=== PATIENT | male | born 1970 | race Caucasian/White ===

== ENCOUNTER 2018-02-13 09:49 | Inpatient (IN) | payer OTHER ==
--- NOTE | 2018-02-13 10:03 | CPEKG ---
Heart Rate: 115 RR Interval: 522 P-R Interval: 180 QRSD Interval: 90 QT Interval: 316 QTC Interval: 437 P [place]: 19 QRS [place]: 50 T Wave [place]: 7 EKG Severity - OTHERWISE NORMAL ECG - EKG Impression: SINUS TACHYCARDIA Electronically Signed By: Escobar Mcmullen 13-Feb-2018 14:44:19
--- NOTE | 2018-02-13 10:05 | EDPHY ---
H & P Stated Complaint: SOB/CHEST TIGHTNESS WITH EXERTION Time Seen by Provider: 02/13/18 10:05 - Personal History Current Tetanus/Diphtheria Vaccine: Unsure - Medical/Surgical History Hx Asthma: No Hx Chronic Respiratory Disease: No Hx Diabetes: No Hx Cardiac Disease: No Hx Renal Disease: No Hx Cirrhosis: No Hx Alcoholism: No Hx HIV/AIDS: No Hx Splenectomy or Spleen Trauma: No Other PMH: SKULL FX - Social History Smoking Status: Never smoked Constitutional: Initial Vital Signs Temperature (C) 36.9 C 02/13/18 09:55 Heart Rate 131 H 02/13/18 09:55 Respiratory Rate 22 H 02/13/18 09:55 Blood Pressure 107/85 H 02/13/18 09:55 O2 Sat (%) 98 02/13/18 09:55 O2 Delivery Mode Room Air Allergies/Adverse Reactions: No Known Allergies Allergy (Unverified 02/13/18 09:55) Home Medications: Medication Instructions Recorded Ibuprofen [Motrin (*)] 400 mg PO BID PRN 02/13/18 Medical Decision Making - Diagnostics Imaging: I viewed and interpreted images myself ED Course/Re-evaluation: CHIEF COMPLAINT: Rapid heart rate, dyspnea HISTORY OF PRESENT ILLNESS: The patient is a 47 y/o male complaining of rapid heart rate and dyspnea worsening since Wednesday. He's had intermittent similar symptoms for many years and had some limited cardiac evaluation 8-9 years ago in [place] that did not reveal an obvious cause. He had a negative stress test at that time. Since then, he's described himself as exercise-intolerant and this has been a common precipitating cause for his shortness of breath and tachycardia. He's had more frequent episodes of this over the last week and had acute, but short-lived chest pain 5 days ago when walking into work. Over the weekend he's had significantly worsening dyspnea even while lying down or talking while at rest. 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 No recent illness or trauma. He notes his father was recently diagnosed with a thyroid issue. REVIEW OF SYSTEMS: A 10 point review of systems was performed and is negative with the exception of the elements mentioned in the history of present illness. PHYSICAL EXAM: HR 132, BP 90/60, O2 Sat, RR. Temp noted General Appearance: Alert, well hydrated, appropriate, tachypneic, dyspneic, and tachycardic, anxious-appearing. Head: Atraumatic without scalp tenderness or obvious injury Eyes: Pupils equal, round, reactive to light and accommodation, EOMI, no trauma , no injection. Nose: Atraumatic, no rhinorrhea, clear. Throat: Mucus membranes moist. Neck: Supple, nontender, no lymphadenopathy. Respiratory: No retractions, no distress, no wheezes, and no accessory muscle use. Lungs have rales at the bases bilaterally. Few-word dyspnea. Tachypnea. Cardiovascular: Tachycardic regular rate and rhythm, possible diastolic murmur difficult to hear due to rate, no rubs or gallops. Good capillary refill all extremities. Gastrointestinal: Abdomen is soft, nontender, non-distended, no masses, no rebound, no guarding, no peritoneal signs. Musculoskeletal: Normal active ROM of all extremities, atraumatic. Neurological: Alert, appropriate, and interactive. The patient has non-focal cranial nerves, motor, sensory, and cerebellar exam. Skin: No rashes, good turgor, no nodules on palpation. Past medical history: Rapid heart rate/intolerance to exercise of unknown etiology Past surgical history: Denies Family history: Father recently diagnosed with thyroid issue. Social history: Works as software clerk. Recently moved here from [facility]. DIAGNOSTICS/PROCEDURES/CRITICAL CARE TIME: The 12 lead EKG was interpreted by myself. Sinus tachycardia rate 115. See hard copy and/or "tracemaster" electronic copy for interpretation. Chest x-ray: nothing acute Echocardiogram: Mitral valve regurgitation with severe hypokinesis of apex, formal read pending. Critical care time spent by me, Dr. Mcmullen, exclusively with this patient was 45 minutes, exclusive of PA time and exclusive of procedures. The organ system at risk was cardiovascular. Time spent in serial assessments of patient, review of EKGs, labs, and imaging, and consultation with cardiology. DIFFERENTIAL DIAGNOSIS: The differential diagnosis for the patient's shortness of breath and hypoxemia included but was not limited to pneumonia, myocardial infarction, acute mountain sickness, high altitude pulmonary edema, congestive heart failure, and pulmonary embolus. MEDICAL DECISION MAKING: This is a 47 y/o male who presents with several years of "exercise-intolerance" due to tachycardia and dyspnea that worsened acutely on Wednesday, 2 days ago. He now is having dyspnea even at rest and while speaking. He is currently tachycardic around 130, hypotensive around 90 systolic, has few-word dyspnea when speaking, and has rales bilaterally at the bases on auscultation. He has a possible diastolic murmur that is new, but difficult to auscultate due to rapid heart rate. Will need to rule out PE, but presentation seems to more likely point to intrinsic cardiac issue. Plan for IV, labs, EKG, chest CTA, echocardiogram. 1017: Consulted with Dr. Luevano, cardiology. He approves echocardiogram order. Formal echo read pending. There appears to be severe mitral valve regurgitation and possible vegetation. His troponin is elevated at 1.570 and BNP elevated at 6550. This combined with rales, dyspnea, tachycardia seems to indicate CHF related to mitral valve regurgitation. Spoke with hospitalist service. Dr. Roman accepts admission. 1111: Consulted with Dr. Luevano. He will evaluate patient in the ED. CTA chest cancelled. Chest x-ray ordered. 1150: Dr. 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 - Data Points Laboratory Results: Laboratory Results 02/13/18 10:03 02/13/18 10:03 02/13/18 02/13/18 02/13/18 10:03 10:03 10:03 WBC RBC Hgb Hct MCV MCH MCHC RDW Plt Count MPV Neut % (Auto) Lymph % (Auto) [place] % (Auto) Eos % (Auto) Baso % (Auto) Nucleat RBC Rel Count Absolute Neuts (auto) Absolute Lymphs (auto) Absolute Monos (auto) Absolute Eos (auto) Absolute Basos (auto) Absolute Nucleated RBC Immature Gran % Immature Gran # PT 12.9 SEC SEC (12.0-15.0) INR 0.95 (0.83-1.16) APTT 27.5 SEC SEC (23.0-38.0) Sodium 143 mEq/L mEq/L (135-145) Potassium 4.7 mEq/L mEq/L (3.5-5.2) Chloride 101 mEq/L mEq/L (97-110) Carbon Dioxide 25 mEq/l mEq/l (22-31) Anion Gap 17 mEq/L H mEq/L (8-16) BUN 16 mg/dL mg/dL (7-23) Creatinine 1.2 mg/dL mg/dL (0.7-1.3) Estimated GFR > 60 Glucose 141 mg/dL H mg/dL (70-100) Calcium 9.6 mg/dL mg/dL (8.5-10.4) Magnesium 2.1 mg/dL mg/dL (1.6-2.3) Total Bilirubin 2.4 mg/dL H mg/dL (0.1-1.4) Conjugated Bilirubin 0.6 mg/dL H mg/dL (0.0-0.5) Unconjugated Bilirubin 1.8 mg/dL H mg/dL (0.0-1.1) AST 59 IU/L IU/L (17-59) ALT 68 IU/L IU/L (21-72) Alkaline Phosphatase 102 IU/L IU/L (38-126) Troponin I 1.570 ng/mL H ng/mL (0.000-0.034) NT-Pro-B Natriuret Pep 6550 pg/mL H pg/mL (0-125) Total Protein 8.1 g/dL g/dL (6.3-8.2) Albumin 4.6 g/dL g/dL (3.5-5.0) Lipase 91 IU/L IU/L (23-300) TSH 2.110 uIU/mL uIU/mL (0.465-4.680) 02/13/18 10:03 WBC 10.65 10^3/uL H 10^3/uL (3.80-9.50) RBC 5.88 10^6/uL 10^6/uL (4.40-6.38) Hgb 17.9 g/dL H g/dL (13.7-17.5) Hct 49.4 % % (40.0-51.0) MCV 84.0 fL fL (81.5-99.8) MCH 30.4 pg pg (27.9-34.1) MCHC 36.2 g/dL g/dL (32.4-36.7) RDW 12.4 % % (11.5-15.2) Plt Count 176 10^3/uL 10^3/uL (150-400) MPV 9.8 fL fL (8.7-11.7) Neut % (Auto) 70.8 % % (39.3-74.2) Lymph % (Auto) 14.9 % L % (15.0-45.0) [place] % (Auto) 13.4 % H % (4.5-13.0) Eos % (Auto) 0.2 % L % (0.6-7.6) Baso % (Auto) 0.3 % % (0.3-1.7) Nucleat RBC Rel Count 0.0 % % (0.0-0.2) Absolute Neuts (auto) 7.54 10^3/uL H 10^3/uL (1.70-6.50) Absolute Lymphs (auto) 1.59 10^3/uL 10^3/uL (1.00-3.00) Absolute Monos (auto) 1.43 10^3/uL H 10^3/uL (0.30-0.80) Absolute Eos (auto) 0.02 10^3/uL L 10^3/uL (0.03-0.40) Absolute Basos (auto) 0.03 10^3/uL 10^3/uL (0.02-0.10) Absolute Nucleated RBC 0.00 10^3/uL 10^3/uL (0-0.01) Immature Gran % 0.4 % % (0.0-1.1) Immature Gran # 0.04 10^3/uL 10^3/uL (0.00-0.10) PT INR APTT Sodium Potassium Chloride Carbon Dioxide Anion Gap BUN Creatinine Estimated GFR Glucose Calcium Magnesium Total Bilirubin Conjugated Bilirubin Unconjugated Bilirubin AST ALT Alkaline Phosphatase Troponin I NT-Pro-B Natriuret Pep Total Protein Albumin Lipase TSH Medications Given: Discontinued Medications Sodium Chloride (Ns) 500 mls @ 1,000 mls/hr IV EDNOW ONE PRN Reason: Protocol Stop: 02/13/18 10:42 Last Admin: 02/13/18 10:25 Dose: 500 mls Departure - Departure Disposition: [facility] Acute Clinical Impression: Tachycardia, Elevated troponin Mitral valve regurgitation Qualifiers: Cardiac valve disease etiology: etiology unspecified Qualified Code(s): I34.0 - Nonrheumatic mitral (valve) insufficiency Dyspnea Qualifiers: Dyspnea type: dyspnea on exertion Qualified Code(s): R06.09 - Other forms of dyspnea CHF (congestive heart failure) Qualifiers: Heart failure type: other Qualified Code(s): I50.9 - Heart failure, unspecified Condition: Fair Report Scribed for: Escobar Mcmullen Report Scribed by: Camila Leon Date of Report: 02/13/18 Time of Report: 10:45
[2018-02-13] MEDS ORDERED: NS 500 ML IV ONE (10:13)
[2018-02-13 10:21] LABS: PLATELET COUNT 176 10^3/uL (150-400)
[2018-02-13 10:34] LABS: INR 0.95 (0.83-1.16); PROTIME(PATIENT) 12.9 SEC (12.0-15.0)
[2018-02-13] MEDS ORDERED: IOPAMIDOL (ISOVUE 370) 100 ML BTL IV ONE (10:43)
--- NOTE | 2018-02-13 11:30 | ASMTCMCOM ---
CM Note CM Note Notes: Pt presented to the Emergency Department with a rapid heart rate. History includes a new thyroid diagnosis and skull fracture. Pt admitted with dyspnea, chest tightness, tachycardia, elevated troponin for further evaluation and treatment. Pt is and lives with his spouse in [place]. Discharge needs remain unclear at this time. CM will continue to follow. Current Discharge Plan: To be determined Date Signed: 02/13/2018 11:30 AM Electronically Signed By:Aleksandra Davidson RN
--- NOTE | 2018-02-13 12:34 | ECHO ---
[email or web address] [address] [address] Main: [phone] Fax: Transthoracic Echocardiogram Name: SHANNAN FLOREZ MR#: [id number] Study Date: 02/13/2018 Study Time: 10:49 AM Date of : 1970 Age: 47 year(s) Height: 193 cm (76 in.) Weight: 104.33 kg (230 lb.) BSA: 2.35 m2 Gender: Male Examination: Echo Indication: Murmur, tachycardia Image Quality: Adequate Contrast: Requested by: Escobar Mcmullen BP: 115 mmHg/81 mmHg Heart Rate: Rhythm: Tachycardia Indication: Murmur, tachycardia Procedure Staff [employer]: Radha Baptiste [facility] Reading Physician: Kevin Luevano MD Requesting Provider: Kevin Luevano MD Conclusions: Low normal left ventricular systolic function with an ejection fraction between 45 and 50%. This is associated with severe hypokinesis to akinesis of the left ventricular apex and adjacent apical segments. This results in a hypercontractile base. There is evidence of a dynamic left ventricular outflow tract gradient of 99 mmHg associated with systolic anterior motion of the chordal apparatus and anterior leaflet of the mitral valve. This results in severe mitral regurgitation. There is associated mild tricuspid regurgitation with moderately elevated estimated RVSP. There is no pericardial effusion. Measurements: Chambers Valvular Assessment AV/MV Valvular Assessment TV/PV Normal Normal Normal Name Value Range Name Value Range Name Value Range Ao Marnie (MM): 3.8 cm (2.2 cm-3.7 AV Vmax: 3.56 m/s (1 m/s-1.7 TR Vmax: 3.03 mm/s ( - ) cm) m/s) TR PGmax: 37 mmHg ( - ) IVSd (2D): 2.1 cm (0.6 cm-1.1 AV maxP mmHg ( - ) syst. PAP: 42 mmHg ( - ) cm) LVOT Vmax: 3.34 m/s (0.7 m/s-1.1 PV Vmax: 0.67 m/s (0.6 m/s-0.9 LVDd (2D): 3.3 cm (4.2 cm-5.9 m/s) m/s) cm) MV E Vmax: 0.65 m/s ( - ) PV PGmax: 2 mmHg ( - ) LVDs (2D): 1.8 cm (2.1 cm-4 MV A Vmax: 0.83 m/s ( - ) cm) MV E/A: 0.78 ( - ) LVPWd (2D): 1.1 cm (0.6 cm-1 cm) LVEF (BP): 47 % (>=55 %) RVDd(2D): 3.7 cm (1.9 cm-3.8 cmmm) Continued Measurements: Chambers Valvular Assessment TV/PV Name Value Name Value Patient: SHANNAN FLOREZ Study Date: 02/13/2018 Page 1 of 2 10:49 AM LADs: 4.7 cm CVP (est.): 5 mmHg LADs Lon.2 cm LA Area: 24.0 cm2 LA Volume: 99 ml LA Volume Index: 42.1 ml/m2 RA Area: 11.0 cm2 Additional Vessels Name Value Ao Ascendin.7 cm Findings: Left Ventricle: Normal size left ventricle. Low normal left ventricular systolic function. EF is 47 %. Unable to assess diastolic dysfunction. Moderate to severe basal septal thickening with mild thickening of the remaining chowdhury. Questionable apical hypokinesis. Visual estimation of the ejection fraction 50%. Right Ventricle: Normal size right ventricle. Normal RV function. Left Atrium: The left atrium is moderately dilated. Right Atrium: The right atrium is normal in size. Mitral Valve: No mitral stenosis is present. Systolic anterior motion of the mitral valve with severe mitral regurgitation. Hard to discern choreal versus anterior leaflet LVOT obstruction. In addition, it is hard to discern redundant chords versus small vegetation. Aortic Valve: The aortic valve is tri-leaflet and functions normally. There is no aortic valve regurgitation. No aortic valve stenosis is present. The gradient throughout the LVOT is 90 both at rest and with valsalva (valsalva was minimal due to patient coughing). Tricuspid Valve: The tricuspid valve is normal in appearance and function. Mild tricuspid regurgitation is present. Right ventricular systolic pressure measures 42mmHg. Mild to moderate tricuspid valve regurgitation. Pulmonic Valve: The pulmonic valve is normal in appearance and function. There is no pulmonic regurgitation seen. Aorta: The aorta is normal. Normal size aortic root measuring 3.8 cm. Normal size ascending aorta measuring 3.7 cm. IVC: The IVC is normal sized. Pericardium: No pericardial effusion. (No Signature Object) Patient: SHANNAN FLOREZ Study Date: 02/13/2018 Page 2 of 2 10:49 AM [id number]
--- NOTE | 2018-02-13 12:53 | GHP ---
[f rep st] HISTORY AND PHYSICAL DATE OF ADMISSION: 02/13/2018 INDICATIONS: Congestive heart failure. HISTORY OF PRESENT ILLNESS: The patient is a very pleasant 47-year-old male seen here in the emergen cy department with shortness of breath. He states that he and his relocated to the local area [facility] from the [facility] about 2 months ago. He has had at least a 10-year history of exertional dyspne a, which apparently he saw a lead care manager in the past for without a definitive diagnosis. Beginning 48 hours ago, he had the fairly abrupt onset of symptoms of limiting dyspnea. He states th at he has not been able to walk more than about 10 or 15 feet before he experiences severe shortness of breath and needs to stop and rest. With this, he has had fairly continuous constant upper chest p ressure with worsening with deep inspiration. He denies orthopnea or PND. He did have a slight chil l last night. Because of these symptoms, he came to the emergency department here. On arrival, he w as noted to be markedly tachycardic with a resting heart rate of 131 beats per minute. Room air satu rations were 98%, and he was afebrile. His blood pressure was 107/85. His initial electrocardiogram demonstrated sinus tachycardia with a heart rate of 115 beats per minute. He does not use drugs. He drinks alcohol only modestly. He denies palpitations. He notes no irregu larity to his heartbeat. He has not had any edema or weight gain. PAST MEDICAL HISTORY: He is healthy without diagnosed medical problems. HOME MEDICATIONS: None. ALLERGIES: None. SOCIAL HISTORY: He is and accompanied by his who is at his bedside. 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 He notes that he moved from the [facility]. He likes to exercise, although in the pa st has been limited. He and his have 2 children. He does not smoke. He uses no drugs. He dri nks maybe 2 or 3 drinks a week. REVIEW OF SYSTEMS: A full 10-point review of systems was performed and is otherwise negative. PHYSICAL EXAMINATION: VITAL SIGNS: Blood pressure 105/67, heart rate 13, respiratory rate 28, O2 sa ts are 99% on room air. GENERAL: Healthy white male, in no acute distress. HEENT: No jugular veno us distention, adenopathy or thyromegaly. Oropharynx is unremarkable. RESPIRATORY: He speaks in fu ll sentences. He is resting comfortably, breathing easily. He is able to lie flat. On auscultation , he has clear lung campovered bilaterally. CARDIAC: Precordial inspection is unremarkable. PMI is non displaced. On auscultation, he is tachycardic. He has a third heart sound noted. There is a 1/6 sy stolic murmur at the left sternal border. ABDOMEN: Soft and nontender. He has normoactive bowel so unds. No masses or hepatosplenomegaly are noted. EXTREMITIES: Warm and well perfused. He has no e jared. VASCULATURE: He has 2+ brachial, 1+ radial and 1+ dorsal pedal pulses bilaterally. NEUROLOGI C: He is alert and oriented with a pleasant mood and affect. DATABASE: His ECG demonstrates sinus tachycardia with a heart rate of 115 beats per minute. He has nonspecific ST changes noted in lead AVF. He had a chest x-ray, which is as of yet not reported. Sodium 143, potassium 4.7, BUN 16, creatinine 1.2, glucose 141, AST, ALT normal. Troponin 1.57. N t erminal proBNP 6550. TSH 2.11. Lipase is normal. INR 0.95. CBC with a white blood cell count 10.6 5, hematocrit 49.4, platelet count 176,000. Echocardiogram was performed. This demonstrated hypercontractility of the basal cardiac segments. H is apex and the adjacent apical segments appear to be severely hypokinetic. He has evidence of a dyn amic left ventricular outflow tract obstruction with chordal LUIS CARLOS. This results in severe mitral regu rgitation. He has no pericardial effusion. IMPRESSION: The patient is a 47-year-old male who comes to the emergency department with complaints of severe dyspnea on exertion associated with mild burning chest pressure. Symptoms have been presen t now for about 48 hours. His examination and laboratory findings suggest new wall motion abnormalit ies in the left ventricular apex. It appears that as a result of these wall motion abnormalities, he has hypercontractility of the basal segments associated with a dynamic left ventricular outflow trac t obstruction and severe mitral regurgitation, likely on the basis of systolic anterior motion of the anterior leaflet of the mitral valve. The underlying pathology could be in the form of ischemia/inf arction, Takotsubo myopathy or potentially myocarditis. This was discussed with he and his family to day. RECOMMENDATIONS: 1. To start with, I think he should undergo cardiac catheterization. I would like to perform a righ t and left heart catheterization. 2. Further recommendations will be made pending the results of the above study. /[id number]/MODL
[2018-02-13] MEDS ORDERED: LIDOCAINE 1% 300 MG/30 ML SDV ONE (13:13)
[2018-02-13] MEDS ORDERED: IOPAMIDOL (ISOVUE-370) 150 ML BTL IV ONE (13:14)
[2018-02-13] MEDS ORDERED: MIDAZOLAM 2 MG/2 ML VIAL ONE (13:14)
[2018-02-13] MEDS ORDERED: fentaNYL 100 MCG/2 ML INJ ONE (13:14)
--- NOTE | 2018-02-13 13:26 | PDPROPOC ---
Sedation Plan of Care Sedation Plan of Care: vital signs stable, mental status noted, patient educated of risks, benefits, alternatives, patient can tolerate sedation ASA Classification: ASA 1 Planned drugs: fentanyl, midazolam Mallampati Score: Class 1 Mallampati Reference Image: Patient passed 3-3-2 rule?: Yes
[2018-02-13] MEDS ORDERED: ASPIRIN 325 MG TAB ONE (13:35)
[2018-02-13] MEDS ORDERED: ACETAMINOPHEN 325 MG TAB PO PRN (14:11)
[2018-02-13] MEDS ORDERED: ONDANSETRON DISINTEGRATING 4 MG TAB PO PRN (14:11)
[2018-02-13] MEDS ORDERED: ONDANSETRON 4 MG/2 ML VIAL IVP PRN (14:11)
--- NOTE | 2018-02-13 14:18 | PDDXCAT ---
Diagnostic Cath Note - . Date: 02/13/18 Manufacturing Weaver: Bassem Indication: other (New onset Otto Cardiovascular Society class 4 CHF associated with segmental wall motion abnormalities involving the left ventricular apex.) - Procedure Access: right groin Procedure: left heart catheterization, coronary angiography, left ventriculogram , right heart catheterization - Materials Left Heart Cath size: 6F Right Heart Cath size: 7F Right Heart Cath materials: PWP catheter - Findings-Left Heart Catheterization LM: Normal. Trifurcates into the LAD, circumflex and ramus intermedius. LAD: Large caliber. Tortuous vessel. 2 diagonals. No obstructive lesions. LCX: Large caliber vessel. 2 obtuse marginal branches. Angiographically normal. RCA: Large caliber vessel. The PDA and posterolateral cascade are noted. Angiographically normal. Ramus: Large caliber vessel. Angiographically normal EDP: 151/7/20 mmHg. LVEF: 30%. 4+ MR. Wall motion: Large area of akinesis involving the left ventricular apex and the adjacent cardiovascular segments to the midportion of the ventricle. - Findings-Right Heart Catheterization RA: 5 mmHg. RV: 31/4/8 mmHg. PA: 29/15/22 mmHg. PAOP: 21 mmHg. AO: 89/65/75 mmHg. CO: 3.98 liters/minute. CI: 1.69 liters/minute per meter squared. Complications: Small right groin hematoma. Estimated blood loss: <100ml Closure method: manual pressure Assessment: 1. Cardiomyopathy suggestive of takotsubo cardiomyopathy in the setting of angiographically normal epicardial coronary arteries. 2. Severe (4+ ) mitral regurgitation related to systolic anterior motion of the mitral valve. 3. Large left ventricular outflow tract gradient in excess of 50 mm of mercury likely related to Papo. 4. Elevated filling pressures. Plan: The patient will be transferred to the intensive care unit. He will be monitored carefully. He will be worked up for alternate causes of his cardiomyopathy. We will attempt to start low-dose beta-jessica therapy. Intervention: None. Patient Problems: Problems Problem Status Onset CHF (congestive heart failure) Acute Dyspnea Acute Elevated troponin Acute Mitral valve regurgitation Acute Tachycardia Acute
[2018-02-13] MEDS: METOPROLOL TARTRATE 25 MG TAB PO SCH ×2 (15:47→21:13)
--- NOTE | 2018-02-13 16:00 | CPEKG ---
Heart Rate: 111 RR Interval: 541 P-R Interval: 168 QRSD Interval: 96 QT Interval: 320 QTC Interval: 435 P Exmore: 12 QRS Exmore: 34 T Wave Exmore: -11 EKG Severity - BORDERLINE ECG - EKG Impression: SINUS TACHYCARDIA EKG Impression: BORDERLINE T ABNORMALITIES, INFERIOR LEADS Electronically Signed By: Edwin Gutierrez 13-Feb-2018 19:34:36
--- NOTE | 2018-02-13 17:14 | GHP ---
[f rep st] HISTORY AND PHYSICAL DATE OF ADMISSION: 02/13/2018 CHIEF COMPLAINT: Shortness of breath. HISTORY: The patient is a 47-year-old male who has had exertional dyspnea for 10 years. However, in the last 48 hours, he became severely short of breath. He can now only walk 10-15 feet without havi ng severe dyspnea on exertion. He has a constant upper chest pressure. There is no PND or orthopnea . He had a stat echo in the emergency room and was found to have wall motion abnormality and decreas ed ejection fraction, so he was brought emergently to the cardiac medical lab tech instructor. Cardiac cath was negativ e for coronary artery disease, but his EF is only 30%. He has 4+ mitral regurgitation and akinesis o f the LV apex. Per Cardiology, this is consistent with takotsubo cardiomyopathy. He has a large lef t ventricular outflow tract gradient. He is now seen in ICU post cardiac cath, and he is without acu te complaint. Recent life stressors include a new job, move across the country from the [place], hi s best friend is dying of leukemia, his daughter was just diagnosed with dyslexia, and they just boug ht a new home. He did have a low-grade fever yesterday. PAST MEDICAL HISTORY: Negative. MEDICATIONS: None. ALLERGIES: No known drug allergies. SOCIAL HISTORY: No smoking. He drinks alcohol, 2-3 drinks per week. 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 He has a and 2 kids. REVIEW OF SYSTEMS: Complete review of systems obtained. Review of systems negative for constitution al, HEENT, GI, pulmonary, vascular, , hematology, musculoskeletal, endocrine, psych except for posi tives and negatives as in HPI. FAMILY HISTORY: Negative for cardiomyopathy. PHYSICAL EXAMINATION: GENERAL: Well-developed, well-nourished male, in no acute distress. VITAL SI GNS: Temperature 37.8, pulse 131, blood pressure 107/75, satting 94% on room air. EYES: Normal con junctivae. Pupils equal and react to light. ENT: Normal ears and nose. Hearing intact. Normal te eth. Oropharynx moist. NECK: Trachea midline. No thyromegaly. CHEST: Normal effort. LUNGS: Cl ear to auscultation bilaterally. CARDIOVASCULAR: Regular rate, rhythm. Tachycardic. Positive murm ur. No lower extremity edema. ABDOMEN: Soft, nontender. No hepatosplenomegaly. SKIN: Warm, dry, intact. No rash. MUSCULOSKELETAL: No cyanosis or clubbing. Strength 5/5 upper and lower extremit ies. NEURO: Cranial nerves intact. Normal sensation to light touch. PSYCH: Alert and oriented x3 . Normal mood and affect. Normal judgment and insight. Normal memory. LABS: White count 10.65, hematocrit 49.4, platelets 176. Sodium 143, potassium 4.7, chloride 101, b icarb 25, BUN 16, creatinine 1.2, glucose 141. INR 0.95. TSH 2.6. Troponins 1.5, BNP is 6550. Tot al bili 2.4, unconjugated bili is 1.8. IMAGING: Chest x-ray is negative. EKG viewed by me. My personal interpretation is sinus tachycardi a. No ischemic change. ASSESSMENT/PLAN: 1. Acute systolic congestive heart failure. Ejection fraction of only 30%. Per Cardiology, most co nsistent with a takotsubo cardiomyopathy. Cardiac catheterization is negative for coronary artery di sease. Cardiology has started him on a low-dose beta jessica at this time. He will be monitored stanford sely with initiation of a regimen for his systolic congestive heart failure. 2. Large left ventricular outflow tract gradient. Will discuss with Cardiology the implications of this. 3. Increased liver function tests. This is probably congestion from his cardiomyopathy. Will follo w. 4. Troponin elevation. This is likely strain as his cath is negative for coronary artery disease, r uling out myocarditis. CODE STATUS: Full. ADMISSION STATUS: Will admit to inpatient as he is critically ill on presentation. Anticipate great er than 2 midnights. DVT PROPHYLAXIS: He is low risk. Will hold off on pharmacologic prophylaxis at this time. /[id number]/MODL
--- NOTE | 2018-02-13 17:33 | PDMN ---
Medical Necessity Medical necessity: C/M review: Patient meets INPT crtieria under MCG M-190 Heart Failure, Cardiology GRG (Takotsubo syndrome): Acute systolic congestive heart fialure - pre Cardiology most consistent with Takotsubo cardiomyopathy, ejection fraction 30%, large left ventricular outflow tract gradient, severe shortness of breath, heart rate 131-109, respiratory rate 22-28, increased LFTs - total bilirubin 2.4, elevated troponin - 1.570, 1.380, WBC 10.65, BNP 6550, C- reactive protein 59.7, patient is critically ill requiring Cardology consult, stat echocardiogram in ED, emergent cardiac catheterization - negative for CAD, ongoing cardiac monitoring, pulse oximetry, frequent vital signs, oral beta jessica started by Cardiology, close monitoring in ICU. MD anticipates > 2 MN LOS for ongoing med nec for eval and TX of above.
[2018-02-14 06:47] LABS: PLATELET COUNT 143 10^3/uL (150-400)
[2018-02-14] MEDS: METOPROLOL TARTRATE 25 MG TAB PO SCH (08:14)
--- NOTE | 2018-02-14 08:38 | CPEKG ---
Heart Rate: 99 RR Interval: 606 P-R Interval: 208 QRSD Interval: 102 QT Interval: 384 QTC Interval: 493 P Whiting: 19 QRS Whiting: 22 T Wave Whiting: 150 EKG Severity - ABNORMAL ECG - EKG Impression: SINUS RHYTHM EKG Impression: FIRST DEGREE AV BLOCK EKG Impression: NONSPECIFIC T ABNORMALITIES, ANT-LAT LEADS EKG Impression: BORDERLINE PROLONGED QT INTERVAL Electronically Signed By: Edwin Gutierrez 16-Feb-2018 05:53:26
[2018-02-14] MEDS ORDERED: NS 1,000 ML IV ONE (12:55)
--- NOTE | 2018-02-14 12:57 | PDHPUP ---
History & Physical Update H&P update statement: This history and physical update is based on an assessment of the patient which was completed after admission or registration (within 24 hours), but prior to the surgery/procedure. H&P update: H&P reviewed & patient examined, no change in patient's condition since H&P completed (Reviewed Dr. Luevano's consult note dated 02/13/2018)
--- NOTE | 2018-02-14 13:04 | PDCARPN ---
Cardiology Progress Note Assessment/Plan: Assessment/plan: 47-year-old male with no previous cardiac history. He was admitted on February 13 with progressive dyspnea to the point of being unable to perform ADLs. He was found to be in heart failure with hypotension and tachycardia. Minimally positive troponin and elevated CRP. He was taken to the starch factory laborer on the day of admission and found to have angiographically normal coronary arteries, a cardiomyopathy in a pattern consistent with a Takotsubo's cardiomyopathy, and severe mitral regurgitation. Mild pulmonary hypertension. 1. Cardiomyopathy: His echocardiogram is suggestive of hypertrophic cardiomyopathy versus Takotsubo's cardiomyopathy with systolic anterior motion of the mitral valve and resultant severe mitral regurgitation. He is not total body volume overloaded but remains dyspneic related to his mitral regurgitation. CARROLL today to further evaluate the structure of his mitral valve in re-evaluate his ejection fraction. Continue low-dose beta-jessica. Will switch to Coreg. Have ordered MEIR, rheumatoid factor, SPEP, and iron studies to evaluate for less likely causes of cardiomyopathy. We will consider cardiac MRI as well. 2. Mitral regurgitation: This seems to be related to anatomical relationship between the anterior leaflet of the mitral valve the left ventricular outflow tract. CARROLL to further clarify and rule out rupture chordae or vegetation. Greater than 30 min spent in chart review, review of studies, discussion with Dr. Luevano, discussion with the patient and his family. 02/14/18 13:06 Subjective: He feels a little bit better today but is still dyspneic with exertion. He still has some chest pressure. He has had a mild cough and low-grade subjective fever at home but no sick contacts. Reviewed/Discussed With: family Objective: Vital Signs (8 Hrs) Temp Pulse Resp BP Pulse Ox 02/14/18 10:16 87 20 97/83 H 94 02/14/18 08:15 37.1 C 99 20 99/80 L 98 02/14/18 08:14 99 99/80 L 02/14/18 05:57 96 30 H 102/70 96 Intake/Output (24 Hrs) 02/13/18 02/14/18 02/15/18 05:59 05:59 05:59 Intake Total 1900 Balance 1900 Intake: Oral (ml) 1050 IV Infused (ml) 850 Ns 500 ml @ 1000 mls/hr 350 IV EDNOW ONE Rx#: [id number] Other: Weight 104.326 kg Number of Voids Toilet 2 No acute distress. JVP less than 10. Regular rate and rhythm with a harsh holosystolic murmur at the left lower sternal border and at the apex. Lungs clear without wheeze rhonchi rales abdomen soft nontender nondistended No lower extremity edema Result Diagrams: 02/14/18 06:20 02/14/18 06:20 Cardiac Labs: Cardiac Lab Results (72 Hrs) 02/13/18 02/13/18 21:50 16:20 Troponin I 0.852 H 1.380 H EKG: Sinus rhythm. Nonspecific IVCD. Telemetry: NSR Echocardiogram: Reviewed: Cardiomyopathy with ejection fraction about 45%. The base is hypercontractile but all chowdhury from midlevel to apex are hypokinetic. Systolic anterior motion of the mitral valve with severe mitral regurgitation. ICD10 Worksheet Patient Problems: Problems Problem Status Onset CHF (congestive heart failure) Acute Dyspnea Acute Elevated troponin Acute Mitral valve regurgitation Acute Tachycardia Acute
[2018-02-14] MEDS ORDERED: ATROPINE SULFATE 1 MG/10 ML SYR ONE (13:40)
--- NOTE | 2018-02-14 13:40 | PDANEPAE ---
ANE History of Present Illness 47 year old with low EF ANE Past Medical History - Pulmonary History Hx Oxygen in Use at Home: No Hx Sleep Apnea: No - Endocrine History Hx Diabetes: No ANE Review of Systems Review of systems is: negative Review of Systems: ANE Patient History - Allergies Allergies/Adverse Reactions: No Known Allergies Allergy (Unverified 02/13/18 09:55) - Home Medications Home medications: home medication list seen and reviewed Home Medications: Ibuprofen [Motrin (*)] 400 mg PO BID PRN 02/13/18 [Last Taken 02/12/18] - NPO status NPO Status: no food or drink >8 hours NPO Since - Solids (Date): 02/14/18 NPO Since - Solids (Time): 07:00 - Anes Hx Anes Hx: no prior problems - Smoking Hx Smoking Status: Never smoked ANE Labs/Vital Signs - Labs Result Diagrams: 02/14/18 06:20 02/14/18 06:20 - Vital Signs Blood Pressure: 97/83 Heart Rate: 87 Respiratory Rate: 20 O2 Sat (%): 94 Height: 193.04 cm Weight: 104.326 kg ANE Physical Exam - Airway Neck exam: FROM Mallampati Score: Class 1 Mouth exam: normal dental/mouth exam - Pulmonary Pulmonary: no respiratory distress - Cardiovascular Cardiovascular: regular rate and rhythym - ASA Status ASA Status: II ANE Anesthesia Plan Anesthesia Plan: MAC
[2018-02-14] MEDS ORDERED: fentaNYL 100 MCG/2 ML INJ ONE (13:44)
[2018-02-14] MEDS ORDERED: PROPOFOL 200 MG/20 ML VIAL ONE (13:44)
--- NOTE | 2018-02-14 14:16 | POSTANESTH ---
Post Anesthetic Evaluation Cardiovascular Status: Normal, Stable Respiratory Status: Normal, Stable Level of Consciousness/Mental Status: Can Participate in Eval, Alert and Oriented Pain Control: Adequate, Prn Tx Ordered Nausea/Vomiting Control: Adequate, Prn Tx Ordered Complications Possibly Related to Anesthesia: None Noted
--- NOTE | 2018-02-14 15:26 | HOSPPROG ---
Hospitalist Progress Note Assessment/Plan: * Acute vs. chronic systolic CHF - EF 30% -Takotsubo vs. hypertrophic cardiomyopathy -cardiac MRI pending -not volume overloaded -coreg started * Troponin elevation -cardiac cath negative for CAD * Severe MR -re-eval on CARROLL today * Severe LVOT obstruction * Increase LFT - Gilbert's vs. hepatic congestion -indirect bili predominant, but not anemic so doubt hemolysis -will send hemolysis labs Subjective: A little better today Objective: Vital Signs Temp Pulse Resp BP Pulse Ox 36.7 C 89 16 124/81 H 93 02/14/18 15:02 02/14/18 15:02 02/14/18 15:02 02/14/18 15:02 02/14/18 15:02 Laboratory Results 02/14/18 06:20 02/14/18 06:20 02/13/18 02/14/18 02/15/18 05:59 05:59 05:59 Intake Total 1900 Balance 1900 PT 12.9 SEC (12.0-15.0) 02/13/18 10:03 INR 0.95 (0.83-1.16) 02/13/18 10:03 d/w Dr. joseph - still unclear cause of CM, some features inconsistent with Takotsubo tele - NSR EKG viewed, my personal interpretation is - evolving TWave changes laterally - Physical Exam Constitutional: no apparent distress, appears nourished, not in pain Cardiovascular: regular rate and rhythym, systolic murmur, No JVD, No edema Respiratory: no respiratory distress, no rales or rhonchi, clear to auscultation Gastrointestinal: normoactive bowel sounds, soft, non-tender abdomen, no palpable masses Skin: no rashes or abrasions, no fluctuance, no induration Neurologic: AAOx3, sensation intact bilaterally Psychiatric: interacting appropriately, not anxious, not encephalopathic, thought process linear ICD10 Worksheet Patient Problems: Problems Problem Status Onset CHF (congestive heart failure) Acute Dyspnea Acute Elevated troponin Acute Mitral valve regurgitation Acute Tachycardia Acute
[2018-02-14] MEDS ORDERED: GADOBUTROL 10 ML VIAL IVP ONE (16:49)
--- NOTE | 2018-02-14 17:02 | ECHO ---
[email or web address] [address] Main: [phone] Fax: Transesophageal Echocardiography Name: SHANNAN FOLREZ MR#: [id number] Study Date: 02/14/2018 Study Time: 01:41 PM Date of : 1970 Age: 47 year(s) Height: 193 cm (76 in.) Weight: 104.33 kg (230 lb.) BSA: 2.35 m2 Gender: Male Examination: CARROLL Indication: Eval Maria Luisa Valve Image Quality: Contrast: Requested by: Sandra Escalona Heart Rate: Rhythm: BP: / Procedure Staff Reflexologist: Walter Holbrook RDCS Reading Physician: Sandra Escalona MD Requesting Provider: CARROLL Exam Details Conclusions: Asymmetrical septal LV hypertrophy. There is systolic anterior motion of the anterior mitral valve leaflet. The ejection fraction is estimated to be 40-45 %. There is apical dyskinesis and hypokinesis. Moderate to severe mitral regurgitation. There is chordal LUIS CARLOS with redundant chordae. There is no evidence of vegetation.. The aortic valve is tri-leaflet and functions normally. Trivial tricuspid valve regurgitation. Measurements: Chambers Valvular Assessment AV/MV Valvular Assessment TV/PV Normal Normal Normal Name Value Range Name Value Range Name Value Range EF Range: 40-45 % Additional Measurements: Findings: Left Ventricle: Asymmetrical septal LV hypertrophy. There is systolic anterior motion of the anterior mitral valve leaflet. The ejection fraction is estimated to be 40-45 %. There is apical dyskinesis and hypokinesis. Right Ventricle: Normal size right ventricle. Normal RV function. Patient: SHANNAN FLOREZ Study Date: 02/14/2018 Page 1 of 2 01:41 PM Left Atrium: The left atrium is moderately dilated. Right Atrium: The right atrium is normal in size. Mitral Valve: Moderate to severe mitral regurgitation. There is systolic anterior motion of the anterior mitral valve leaflet. There is chordal LUIS CARLOS with redundant chordae. There is no evidence of vegetation.. Aortic Valve: The aortic valve is tri-leaflet and functions normally. Tricuspid Valve: The tricuspid valve appears normal. Trivial tricuspid valve regurgitation. Pulmonic Valve: The pulmonic valve is normal in appearance and function. Aorta: The aorta is normal. Pericardium: No pericardial effusion. l1n (No Signature Object) Patient: SHANNAN FLOREZ Study Date: 02/14/2018 Page 2 of 2 01:41 PM [id number]
[2018-02-14] MEDS: CARVEDILOL 3.125 MG TAB PO SCH (19:16)
[2018-02-15] MEDS: CARVEDILOL 3.125 MG TAB PO SCH (08:48)
--- NOTE | 2018-02-15 10:23 | PDCARPN ---
Cardiology Progress Note Assessment/Plan: Assessment/plan: 47-year-old male with no previous cardiac history. He was admitted on February 13 with progressive dyspnea to the point of being unable to perform ADLs. He was found to be in heart failure with hypotension and tachycardia. Minimally positive troponin and elevated CRP. He was taken to the veterinary laboratory diagnostician on the day of admission and found to have angiographically normal coronary arteries, a cardiomyopathy in a pattern suggestive of Takotsubo's cardiomyopathy, and severe mitral regurgitation. Mild pulmonary hypertension. 1. Cardiomyopathy: His echocardiogram is suggestive of hypertrophic cardiomyopathy versus Takotsubo's cardiomyopathy with systolic anterior motion of the mitral valve and resultant severe mitral regurgitation. He is not total body volume overloaded but remains dyspneic related to his mitral regurgitation. CARROLL on 02/14 demonstrated slight improvement (45%) in LVEF. No valvular vegetation and only mild MV prolapse. Continue low-dose Coreg. Have ordered MEIR, rheumatoid factor (negative), SPEP (pending), and iron studies (iron normal, TIBC slightly low, Ferritin high to evaluate for less likely causes of cardiomyopathy. His cardiac MRI is consistent with hypertrophic cardiomyopathy and moderately depressed ejection fraction and there is no significant evidence of active myocarditis on this study. He has not had any ventricular arrhythmias here. We will have him do an outpatient treadmill test and repeat echocardiogram in a couple of weeks to further risk stratify his need for IC D. I have also recommended that his children and other first-degree relatives be screened for hypertrophic cardiomyopathy. 2. Mitral regurgitation: This seems to be related to anatomical relationship between the anterior leaflet of the mitral valve the left ventricular outflow tract. 3. Anemia: This may be related to volume resuscitation. LDH is high. Haptoglobin is pending. Iron studies as above. Would repeat CBC now with continued outpatient follow-up. He appears stable from a cardiac standpoint for discharge. Follow-up as detailed above. 02/15/18 11:27 Subjective: Feels better. SHowered without CP or SOB. No presyncope. [place] his heart racing until the beta blockers "kicked in" Reviewed/Discussed With: family, hospitalist, other (Dr. Fernandez) Objective: Vital Signs (8 Hrs) Temp Pulse Pulse Pulse Pulse Resp BP 02/15/18 08:48 89 111/80 02/15/18 08:00 36.9 C 87 12 108/77 02/15/18 03:44 37 C 93 110 H 116 H 93 14 99/72 L BP BP BP Pulse Ox 02/15/18 08:48 02/15/18 08:00 90 L 02/15/18 03:44 124/84 H 124/74 H 99/72 L 90 L Intake/Output (24 Hrs) 02/14/18 02/15/18 02/16/18 05:59 05:59 05:59 Intake Total 1900 500 Output Total 250 Balance 1900 250 Intake: Oral (ml) 1050 500 IV Infused (ml) 850 Ns 500 ml @ 1000 mls/hr 350 IV EDNOW ONE Rx#: [id number] Output: Urine (ml) 250 Urinal 250 Other: Weight 104.326 kg 104.326 kg Intake Quantity Yes Sufficient Number of Voids Toilet 2 2 Urinal 1 NAD JVP <10. RRR soft early systolic murmur apex Lungs CTAB no edema Result Diagrams: 02/15/18 03:18 02/14/18 06:20 Cardiac Labs: Cardiac Lab Results (72 Hrs) 02/13/18 02/13/18 21:50 16:20 Troponin I 0.852 H 1.380 H Telemetry: NSR ICD10 Worksheet Patient Problems: Problems Problem Status Onset CHF (congestive heart failure) Acute Dyspnea Acute Elevated troponin Acute Mitral valve regurgitation Acute Tachycardia Acute
[2018-02-15 11:49] VITALS: BP 108/73
--- NOTE | 2018-02-15 11:51 | ASMTCMCOM ---
CM Note CM Note Notes: 02/15/2018 Case Management Note Discussed pt during rounds this morning. There are no anticipated case management d/c needs. There are no PT or OT evals at this time. Pt ambulates without difficulty. Case Management d/c poc: independent with follow up as directed. Case Management available if needs change. Date Signed: 02/15/2018 11:50 AM Electronically Signed By:Janeth Cook RN
--- NOTE | 2018-02-15 14:26 | HOSPPROG ---
Hospitalist Progress Note Assessment/Plan: 47 yo M w HOCM and MR Acute vs. chronic systolic CHF - EF 30% hypertrophic cardiomyopathy -cardiac MRI confirms this -not volume overloaded -coreg started w improvement in sx NO vt ON MONITOR Troponin elevation -cardiac cath negative for CAD Severe MR -re-eval on CARROLL today c/w systolic anterior motion from septal motion Severe LVOT obstruction Increase LFT - Gilbert's vs. hepatic congestion -indirect bili predominant, but not anemic so doubt hemolysis -haptoglobin pending, he will call me for results could be hemolyzing 2/2 turbulent blood flow Subjective: case d/w dr joseph Objective: Vital Signs Temp Pulse Resp BP Pulse Ox 36.8 C 92 16 108/73 94 02/15/18 11:48 02/15/18 11:48 02/15/18 11:48 02/15/18 11:48 02/15/18 11:48 Laboratory Results 02/15/18 11:55 02/14/18 06:20 02/14/18 02/15/18 02/16/18 05:59 05:59 05:59 Intake Total 1900 500 Output Total 250 Balance 1900 250 PT 12.9 SEC (12.0-15.0) 02/13/18 10:03 INR 0.95 (0.83-1.16) 02/13/18 10:03 - Physical Exam Constitutional: no apparent distress, appears nourished Eyes: PERRL, anicteric sclera Ears, Nose, Mouth, Throat: moist mucous membranes, hearing normal Cardiovascular: regular rate and rhythym, systolic murmur, No edema Respiratory: no respiratory distress, no rales or rhonchi, No inspiratory crackles Gastrointestinal: normoactive bowel sounds, soft, non-tender abdomen Genitourinary: no bladder fullness, No quiroz in urethra Skin: warm, normal color Musculoskeletal: full muscle strength, no muscle tenderness Neurologic: AAOx3 Psychiatric: interacting appropriately, not anxious Lymph, Heme, Immunologic: no cervical LAD ICD10 Worksheet Patient Problems: Problems Problem Status Onset CHF (congestive heart failure) Acute Dyspnea Acute Elevated troponin Acute Mitral valve regurgitation Acute Tachycardia Acute
--- NOTE | 2018-02-15 14:39 | ASDISCHSUM ---
Discharge Information Plan Status:Home with No Needs Medically Cleared to Leave:02/15/2018 Discharge Date:02/15/2018 CM D/C Disposition:Home, Routine, Self-Care ADT D/C Disposition: Projected Discharge Date:02/15/2018 Transportation at D/C: Discharge Delay Reason: Follow-Up Date:02/15/2018 Discharge Slot: Final Diagnosis:Tachycardia, chest tightness, elevated troponin, dyspnea Placement Information Patient Contact Information Contact Name:LEXI Relationship: Address:[address] Work Phone: City:[place] Alternate Phone: State/Zip Code:[place] [address] Email: Financial Information Financial Class:HMO and PPO Plans Primary Plan Desc:TIKI PPO POS HMO SIG ADM Primary Plan Number:[id number] Secondary Plan Desc: Secondary Plan Number: Assessment Information [facility] CM Progress Note CM Note CM Note Notes: Pt presented to the Emergency Department with a rapid heart rate. History includes a new thyroid diagnosis and skull fracture. Pt admitted with dyspnea, chest tightness, tachycardia, elevated troponin for further evaluation and treatment. Pt is and lives with his spouse in [place]. Discharge needs remain unclear at this time. CM will continue to follow. Current Discharge Plan: To be determined Date Signed: 02/13/2018 11:30 AM Electronically Signed By:Aleksandra Davidson RN [facility] CM Progress Note CM Note CM Note Notes: 02/15/2018 Case Management Note Discussed pt during rounds this morning. There are no anticipated case management d/c needs. There are no PT or OT evals at this time. Pt ambulates without difficulty. Case Management d/c poc: independent with follow up as directed. Case Management available if needs change. Date Signed: 02/15/2018 11:50 AM Electronically Signed By:Janeth Cook RN Case Management Discharge Plan Note Case Management Discharge Discharge Order Complete? Answers: Yes Patient to Obtain Answers: Independently Medications Discharge Comments Notes: 02/15/2018 Case Management Note Pt to d/c independent with follow up as directed. Date Signed: 02/15/2018 02:39 PM Electronically Signed By:Janeth Cook RN Intervention Information
--- NOTE | 2018-02-15 14:43 | ASMTLACE ---
LACE Length of stay for Answers: 2 days current admission Acuity / Level of Answers: Yes Care: Did the patient have an inpatient admission? Comorbidities - select Answers: Other Notes: Thyroid issue, mitral all that apply regurg # of Emergency department Answers: 1-2 visits in the last 6 months Score: 7 Date Signed: 02/15/2018 02:43 PM Electronically Signed By:Janeth Cook RN
--- NOTE | 2018-02-15 16:36 | GDS ---
[f rep st] DISCHARGE SUMMARY DISCHARGE DIAGNOSES: 1. Acute on chronic systolic heart failure secondary to hypertrophic obstructive cardiomyopathy with systolic anterior motion of the mitral valve resulting in severe mitral regurgitation. 2. Troponin excursion. 3. Anemia. HOSPITAL COURSE: Please see admission history and physical by Dr. Tommy Luevano. The patient presented with severe dyspnea on exertion, limiting his ADLs in this otherwise healthy 47-year-old. He had samy vated troponin, and he went to the denture laboratory technician showing essentially no coronary artery disease. He under went a CARROLL, shows EF of 40% to 45% with apical dyskinesis and hypokinesis, as well as moderate to sev ere mitral regurgitation. He also had a cardiac MRI, all felt to be consistent with hypertrophic obs tructive cardiomyopathy with mitral regurgitation. He was started on carvedilol with improvement in his symptoms. He was not hypoxic. He was not orthostatic. He is discharged home with close outpati ent Cardiology followup. He had no ventricular tachycardia on the monitor. He has no family history of sudden , and he has not had unexplained syncope as an outpatient. /[id number]/MODL
== END 2018-02-15 15:15 | disposition home or self-care (01) | DRG 287 ==
LOC: F2N 15:03 → F2W 02-14 10:13
PROVIDERS: ADMIT Internal Medicine; ATTEND Internal Medicine
DX: I50.23 Acute on chronic systolic (congestive) heart failure (principal); I42.1 Obstructive hypertrophic cardiomyopathy; I34.0 Nonrheumatic mitral (valve) insufficiency; D64.9 Anemia, unspecified; I27.20 Pulmonary hypertension, unspecified
CPT/HCPCS: 83010-90; A9585; C1769; J0461; J1644; J2250; J2704; J3010; Q9967